=== PATIENT | male | born 1985 | race Caucasian/White ===

== ENCOUNTER 2018-01-07 16:07 | Emergency (ER) | payer BC, OTHER ==
[2018-01-07 16:44] LABS: VBG CARBOXYHEMOGLOBIN 10.8 % T HGB (0.0-6.9); VBG HCO3- 27.6 meq/L (22-28); VBG HEMOGLOBIN 16.3; VBG O2 SATURATION 54.5 (95-100); VBG PCO2 50 mm/Hg (42-55); VBG PO2 26 mm/Hg (25-40); VBG POTASSIUM 3.3 (3.5-5.1); VBG pH 7.35 (7.32-7.42)
[2018-01-07] MEDS ORDERED: Sodium Chloride 0.9% 1000 ML 1,000 ML (16:44)
[2018-01-07] MEDS ORDERED: THIAMINE 200 MG/2 ML (16:44)
[2018-01-07] MEDS: THIAMINE 200 MG/2 ML IV (16:45)
[2018-01-07] MEDS: Sodium Chloride 0.9% 1000 ML 1,000 ML IV (16:45)
[2018-01-07 16:53] LABS: BASOPHIL % 0.5 % (0.0-0.4); Basophil (Absolute #) 0.03 (0-0.4); Eosinophil % 0.8 % (0.00-5.0); Eosinophil (Absolute #) 0.05 (0-0.5); Granulocyte Absolute (ANC) 3.85 (1.4-6.9); Hematocrit 46.2 % (42-50); Hemoglobin 15.5 gm/dl (12.5-18.0); Lymphocyte (Absolute #) 1.58 (1.0-4.6); Lymphocytes % 26.6 % (24.0-44.0); Mean Cell Volume 90.2 fl (78-100); Mean Corpuscular Hemoglobin 30.3 pg (26-32); Mean Corpuscular Hgb Concent. 33.5 g/dl (32-36); Mean Platelet Volume 10.9 fl (6-9.5); Monocyte (Absolute #) 0.42 (0.0-1.3); Monocytes % 7.1 % (0.0-12.0); Platelet Count 189 K/mm3 (150-450); Red Blood Count 5.12 M/mm3 (4.1-5.6); Red Cell Distribution Width 13.2 % (11.5-14.0); White Blood Count 5.9 K/mm3 (4.0-10.5)
[2018-01-07 16:58] LABS: ADD MANUAL DIFF? NO (NO)
[2018-01-07 17:07] LABS: ALBUMIN 4.8 g/dL (3.5-5.0); ALKALINE PHOSPHATASE 78 U/L (38-126); ANION GAP 14.6 MEQ/L (5-15); BLOOD UREA NITROGEN 11 mg/dL (9-20); CHLORIDE 103 mmol/L (98-107); Calcium 9.4 mg/dL (8.4-10.2); Carbon Dioxide 26 mmol/L (22-30); Creatinine 1 0.96 mg/dL (0.66-1.25); EST GLOMERULAR FILTRATION RATE > 60.0 ML/MIN; ETHYL ALCOHOL 124 mg/dL (0-10); Glucose 100 mg/dL (74-106); Potassium 3.6 mmol/L (3.5-5.1); SGOT/AST 24 U/L (17-59); SGPT/ALT 18 U/L (0-50); SODIUM 140 mmol/L (137-145); Total Protein 7.3 g/dL (6.3-8.2)
[2018-01-07 17:10] LABS: ACETAMINOPHEN < 10 ug/ml (10-30); SALICYLATE < 1.0 mg/dL (2-20)
[2018-01-07 18:15] LABS: VBG BASE EXCESS 2.7 (-2.0-2.0); VBG CARBOXYHEMOGLOBIN 6.4 % T HGB (0.0-6.9); VBG HCO3- 28.5 meq/L (22-28); VBG HEMOGLOBIN 15.7; VBG O2 SATURATION 48.7 (95-100); VBG PCO2 47 mm/Hg (42-55); VBG PO2 24 mm/Hg (25-40); VBG pH 7.39 (7.32-7.42)
[2018-01-07 18:18] LABS: Appearance CLEAR (CLEAR); Bilirubin NEGATIVE (NEGATIVE); Blood NEGATIVE Ery/ul (0-5); Glucose NEGATIVE (NEGATIVE); Ketones NEGATIVE (NEGATIVE); Leukocyte Esterase NEGATIVE (NEGATIVE); Mucus SLIGHT /HPF (NEGATIVE); Nitrite NEGATIVE (NEGATIVE); Protein,Urine Dip NEGATIVE (Negative); Specific Gravity 1.024 (1.005-1.025); Urobilinogen 2 mg/dL (0-1); WBC 0-2 /HPF (0-5)
[2018-01-07 18:22] LABS: Bacteria NONE SEEN /HPF (NEGATIVE)
[2018-01-07 18:23] LABS: ADD URINE CULTURE? NO (NO)
[2018-01-07 18:34] LABS: Amphetamine,Urine NEGATIVE (NEGATIVE); Barbiturate,Urine NEGATIVE (NEGATIVE); Benzodiazepine,Urine NEGATIVE (NEGATIVE); Cocaine,Urine NEGATIVE (NEGATIVE); Methadone,Urine NEGATIVE (NEGATIVE); Opiate,Urine NEGATIVE (NEGATIVE); PCP,Urine NEGATIVE (NEGATIVE); THC,Urine NEGATIVE (NEGATIVE)
== END 2018-01-07 19:33 ==
LOC: ED 16:07
CPT/HCPCS: 36000; 36415; 80053; 80307; 81001; 82805; 85025; 93005; 93041; 96360; 96374; G0481

== ENCOUNTER 2019-11-02 15:24 | Emergency (ER) | payer BC, OTHER ==
--- NOTE | 2019-11-02 15:32 | ERPHSYRPT ---
- History of Present Illness Time Seen by Provider: 11/02/19 15:31 Source: patient, EMS Exam Limitations: clinical condition Physician History: This is a 33-year-old white male who has some anxiety issues and was recently placed (within the last 2 weeks) on hydroxyzine and Wellbutrin. Today, while at work, witnesses state that he had a syncopal episode with seizure-like activity. By the time EMS arrived, the patient appeared postictal without any evidence of seizures. Patient only complaint is right clavicle and right shoulder pain. He was tachycardic in route here to the emergency department. He denies any other medication use. He denies illicit drug use. Patient has no history of seizures. Patient did not soil himself with urine or stool. Timing/Duration: today Severity: moderate Character of Deficits: none Deficits: no difficulties Baseline/Normal Cognition: alert oriented x 3 Current Cognition: alert but confused Baseline Gait: walks w/o assistance Associated Symptoms: confusion (Postictal) Allergies/Adverse Reactions: No Known Drug Allergies Allergy (Verified 01/07/18 16:45) Home Medications: buPROPion HCl [Bupropion HCl Sr] 150 mg PO DAILY 11/02/19 [History] hydrOXYzine HCL [Hydroxyzine HCl] 10 mg PO DAILY 11/02/19 [History] Hx Tetanus, Diphtheria Vaccination/Date Given: No Hx Influenza Vaccination/Date Given: No Hx Pneumococcal Vaccination/Date Given: No Travel Risk - International Travel Have you traveled outside of the country in past 3 weeks: No - Coronavirus Screening Are you exhibiting any of the following symptoms?: No Close contact with a COVID-19 positive Pt in past 14-21 Days: No - Review of Systems Constitutional: No Symptoms Eyes: No Symptoms Ears, Nose, & Throat: No Symptoms Respiratory: No Symptoms Cardiac: No Symptoms Abdominal/Gastrointestinal: No Symptoms Genitourinary Symptoms: No Symptoms Musculoskeletal: Injury (Right clavicle and right shoulder) Skin: No Symptoms Neurological: No Symptoms Psychological: No Symptoms Endocrine: No Symptoms Hematologic/Lymphatic: No Symptoms Immunological/Allergic: No Symptoms All Other Systems: Reviewed and Negative - Past Medical History Pertinent Past Medical History: Yes Neurological History: No Pertinent History ENT History: No Pertinent History Cardiac History: No Pertinent History Respiratory History: No Pertinent History Musculoskeletal History: No Pertinent History GI Medical History: No Pertinent History History: No Pertinent History Psycho-Social History: Anxiety, Depression - Past Surgical History Past Surgical History: No Neuro Surgical History: No Pertinent History Cardiac: No Pertinent History Respiratory: No Pertinent History Gastrointestinal: No Pertinent History Genitourinary: No Pertinent History Musculoskeletal: No Pertinent History Male Surgical History: No Pertinent History - Social History Smoking Status: Current every day smoker How long have you smoked: 12 years Exposure to second hand smoke: Yes Drug Use: none Patient Lives Alone: No - Nursing Vital Signs Nursing Vital Signs: Initial Vital Signs Temperature 98.6 F 11/02/19 15:26 Pulse Rate 120 H 11/02/19 15:26 Respiratory Rate 22 11/02/19 15:26 Blood Pressure 142/95 11/02/19 15:26 O2 Sat by Pulse Oximetry 100 11/02/19 15:26 Pain Scale Pain Intensity 4 - [place] Coma Scale Best Eye Response ([place]): (4) open spontaneously Best Verbal Response ([place]): (5) oriented Best Motor Response (Sujatha): (6) obeys commands Sujatha Total: 15 - Physical Exam General Appearance: mild distress, alert, anxiety Eye Exam: bilateral eye: normal inspection, PERRL, EOMI Ears, Nose, Throat Exam: normal ENT inspection, moist mucous membranes Neck Exam: normal inspection, non-tender, supple, full range of motion Respiratory: normal breath sounds, lungs clear, airway intact, No chest tenderness, No respiratory distress Cardiovascular: tachycardia Gastrointestinal: soft, normal bowel sounds, No tenderness Rectal Exam: not done Back Exam: normal inspection, normal range of motion, No CVA tenderness, No vertebral tenderness Extremity Exam: pelvis stable, deformities (Right mid clavicle), limited range of motion (Right shoulder), tenderness (Right clavicle) Mental Status: alert, 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 There is new sinus tachycardia. Neither EKG shows acute ischemic changes), Sinus Tach, NORMAL AXIS, NORMAL INTERVALS, NORMAL QRS, Other Ordered Tests: Active Orders 24 hr Category Date Time Status Aircraft Structural Design Engineer STAT Care 11/02/19 15:35 Active Clean Catch Urine Specimen STAT Care 11/02/19 15:33 Active EKG-ER Only STAT Care 11/02/19 15:33 Active Sling Application STAT Care 11/02/19 16:26 Active CLAVICLE Stat Exams 11/02/19 15:39 Taken HEAD WITHOUT CONTRAST [CT] Stat Exams 11/02/19 15:33 Taken SHOULDER Stat Exams 11/02/19 15:39 Taken ACETAMINOPHEN Stat Lab 11/02/19 15:46 Completed CBC W DIFF Stat Lab 11/02/19 15:46 Completed CMP Stat Lab 11/02/19 15:46 Completed ETHYL ALCOHOL Stat Lab 11/02/19 15:46 Completed SALICYLATE Stat Lab 11/02/19 15:46 Completed TROPONIN Q3H Lab 11/02/19 15:45 Completed TROPONIN Q3H Lab 11/02/19 18:45 Ordered TROPONIN Q3H Lab 11/02/19 21:45 Ordered TROPONIN Q3H Lab 11/03/19 00:45 Ordered TROPONIN Q3H Lab 11/03/19 03:45 Ordered UA W/RFX UR CULTURE Stat Lab 11/02/19 17:45 Completed Urine Triage Profile Stat Lab 11/02/19 17:45 Completed Medication Summary Discontinued Medications Generic Name Dose Route Start Last Admin Trade Name Freq PRN Reason Stop Dose Admin Lorazepam 1 mg 11/02/19 15:40 11/02/19 15:44 Ativan 2 Mg/1 Ml Vial IV 11/02/19 15:41 1 mg STAT ONE Administration Lorazepam Confirm 11/02/19 15:44 Ativan 2 Mg/1 Ml Vial Administered 11/02/19 15:45 Dose 2 mg .ROUTE .STK-MED ONE Lab/Rad Data: Laboratory Result Diagrams 11/02/19 15:46 11/02/19 15:46 Laboratory Results 11/02/19 11/02/19 11/02/19 Range/Units 17:45 17:45 15:46 WBC (4.0-10.5) K/mm3 RBC (4.1-5.6) M/mm3 Hgb (12.5-18.0) gm/dl Hct (42-50) % MCV (78-100) fl MCH (26-32) pg MCHC (32-36) g/dl RDW (11.5-14.0) % Plt Count (150-450) K/mm3 MPV (7.5-11.0) fl Gran % (36.0-66.0) % Eos # (Auto) (0-0.5) Absolute Lymphs (auto) (1.0-4.6) Absolute Monos (auto) (0.0-1.3) Lymphocytes % (24.0-44.0) % Monocytes % (0.0-12.0) % Eosinophils % (0.00-5.0) % Basophils % (0.0-0.4) % Absolute Granulocytes (1.4-6.9) Basophils # (0-0.4) Sodium 136 L (137-145) mmol/L Potassium 4.1 (3.5-5.1) mmol/L Chloride 107 (98-107) mmol/L Carbon Dioxide 16 L* (22-30) mmol/L Anion Gap 16.9 H (5-15) MEQ/L BUN 12 (9-20) mg/dL Creatinine 1.00 (0.66-1.25) mg/dL Estimated GFR > 60.0 ML/MIN Glucose 95 (74-106) mg/dL Calcium 8.8 (8.4-10.2) mg/dL Total Bilirubin 0.40 (0.2-1.3) mg/dL AST 31 (17-59) U/L ALT 25 (0-50) U/L Alkaline Phosphatase 65 (38-126) U/L Troponin I (0.000-0.034) ng/mL Serum Total Protein 6.4 (6.3-8.2) g/dL Albumin 4.1 (3.5-5.0) g/dL Urine Color YELLOW (YELLOW) Urine Appearance SLIGHTLY CLOUDY (CLEAR) Urine pH 6.0 (5-6) Ur Specific [place] 1.006 (1.005-1.025) Urine Protein NEGATIVE (Negative) Urine Ketones NEGATIVE (NEGATIVE) Urine Blood NEGATIVE (0-5) [place]/ul Urine Nitrite NEGATIVE (NEGATIVE) Urine Bilirubin NEGATIVE (NEGATIVE) Urine Urobilinogen NEGATIVE (0-1) mg/dL Ur Leukocyte Esterase NEGATIVE (NEGATIVE) Urine WBC (Auto) NONE (0-5) /HPF Urine RBC (Auto) NONE (0-2) /HPF U Epithel Cells (Auto) NONE (FEW) /HPF Urine Bacteria (Auto) NONE (NEGATIVE) /HPF Urine Mucus (Auto) SLIGHT (NEGATIVE) /HPF Urine Culture Reflexed NO (NO) Urine Glucose NEGATIVE (NEGATIVE) mg/dL Salicylates 1.0 L (2-20) mg/dL Urine Opiates Level NEGATIVE (NEGATIVE) Ur Methadone NEGATIVE (NEGATIVE) Acetaminophen < 10 L (10-30) ug/ml Urine Barbiturates NEGATIVE (NEGATIVE) Ur Phencyclidine (PCP) NEGATIVE (NEGATIVE) Urine Amphetamine NEGATIVE (NEGATIVE) U Benzodiazepine Level NEGATIVE (NEGATIVE) Urine Cocaine NEGATIVE (NEGATIVE) Urine Marijuana (THC) NEGATIVE (NEGATIVE) Ethyl Alcohol < 10 (0-10) mg/dL 11/02/19 11/02/19 Range/Units 15:46 15:45 WBC 5.2 (4.0-10.5) K/mm3 RBC 4.63 (4.1-5.6) M/mm3 Hgb 14.3 (12.5-18.0) gm/dl Hct 42.9 (42-50) % MCV 92.7 (78-100) fl MCH 30.9 (26-32) pg MCHC 33.3 (32-36) g/dl RDW 13.0 (11.5-14.0) % Plt Count 188 (150-450) K/mm3 MPV 10.2 (7.5-11.0) fl Gran % 60.1 (36.0-66.0) % Eos # (Auto) 0.08 (0-0.5) Absolute Lymphs (auto) 1.59 (1.0-4.6) Absolute Monos (auto) 0.38 (0.0-1.3) Lymphocytes % 30.5 (24.0-44.0) % Monocytes % 7.3 (0.0-12.0) % Eosinophils % 1.5 (0.00-5.0) % Basophils % 0.6 (0.0-0.4) % Absolute Granulocytes 3.14 (1.4-6.9) Basophils # 0.03 (0-0.4) Sodium (137-145) mmol/L Potassium (3.5-5.1) mmol/L Chloride (98-107) mmol/L Carbon Dioxide (22-30) mmol/L Anion Gap (5-15) MEQ/L BUN (9-20) mg/dL Creatinine (0.66-1.25) mg/dL Estimated GFR ML/MIN Glucose (74-106) mg/dL Calcium (8.4-10.2) mg/dL Total Bilirubin (0.2-1.3) mg/dL AST (17-59) U/L ALT (0-50) U/L Alkaline Phosphatase (38-126) U/L Troponin I < 0.012 (0.000-0.034) ng/mL Serum Total Protein (6.3-8.2) g/dL Albumin (3.5-5.0) g/dL Urine Color (YELLOW) Urine Appearance (CLEAR) Urine pH (5-6) Ur Specific [place] (1.005-1.025) Urine Protein (Negative) Urine Ketones (NEGATIVE) Urine Blood (0-5) [place]/ul Urine Nitrite (NEGATIVE) Urine Bilirubin (NEGATIVE) Urine Urobilinogen (0-1) mg/dL Ur Leukocyte Esterase (NEGATIVE) Urine WBC (Auto) (0-5) /HPF Urine RBC (Auto) (0-2) /HPF U Epithel Cells (Auto) (FEW) /HPF Urine Bacteria (Auto) (NEGATIVE) /HPF Urine Mucus (Auto) (NEGATIVE) /HPF Urine Culture Reflexed (NO) Urine Glucose (NEGATIVE) mg/dL Salicylates (2-20) mg/dL Urine Opiates Level (NEGATIVE) Ur Methadone (NEGATIVE) Acetaminophen (10-30) ug/ml Urine Barbiturates (NEGATIVE) Ur Phencyclidine (PCP) (NEGATIVE) Urine Amphetamine (NEGATIVE) U Benzodiazepine Level (NEGATIVE) Urine Cocaine (NEGATIVE) Urine Marijuana (THC) (NEGATIVE) Ethyl Alcohol (0-10) mg/dL - Progress Progress: improved, pain not gone completely, re-examined Progress Note: 11/02/19 16:22 X-ray of right clavicle reveals fracture at the distal one third. X-ray of the right shoulder reveals no shoulder fracture or dislocation. The fracture of the right clavicle is visible. 11/02/19 16:49 Spoke with trauma surgeon, Dr. Jay, [facility]. I reviewed the x-ray of the right clavicle with her. She states that 50% of these types of clavicular fractures are treated nonoperatively and 50% are treated operatively. She states that they can be dealt with on an outpatient basis. She recommends contacting orthopedic surgeon Dr. Dougherty on Tuesday to make arrangements for an appointment for evaluation. She recommends patient be placed in a sling. The patient had already been paid placed in a sling and his pain is significantly improved in the sling. 11/02/19 17:31 CAT scan of the head reveals no acute intracranial abnormality. Medical decision making: This patient has no acute intracranial abnormality on his CAT scan of his head. He states he is feeling well at this time. We will have him decrease his Wellbutrin to the beginning dose rather than stop his medication completely over the weekend. We will have him stop his hydroxyzine and add Ativan twice a day over the weekend. We will keep him in a sling to help stabilize and for pain control for his right clavicular fracture. He is to call orthopedic surgeon on Tuesday for evaluation of his right clavicular f racture as well as calling Ivon Rice nurse practitioner for further management of his medications. 11/02/19 18:27 Patient is feeling very well. I think his CO2 is low secondary to hyperventilating when he first came in. He now says that he no longer feels as though he is in a fog. He has no chest pain he is not short of breath. Counseled pt/family regarding: lab results, diagnosis, need for follow-up, rad results - Departure Departure Disposition: Home Clinical Impression: Episode of syncope, Right clavicle fracture Condition: Stable Critical Care Time: No Referrals: THUY GALVAN MD [Primary Care Provider] - Additional Instructions: Wear your sling for comfort. Stop your hydroxyzine. Decrease your Wellbutrin to the lowest beginning dose that she started 2 weeks ago. Do not take the lorazepam (Ativan) and the [place] pain medicine at the same time. Wait 2 hours between taking Ativan and [place]. Only use these medication on an as-needed basis. Call Ivon Rice your nurse practitioner on Tuesday for further instructions and management of your medications. Call Dr. Dougherty, orthopedic surgeon on 11/05/2019 to arrange for follow-up appointment and further management of your right clavicle fracture. His office is in [facility]. His office phone number is [phone] Prescriptions: Lorazepam 0.5 mg [Ativan 0.5 MG] 0.5 mg PO BID PRN #6 tablet MDD 2 PRN Reason: Anxiety Hydrocodone/APAP 5-325 Tab^^^ [[place] 5-325 Tablet^^^] 1 each PO Q12H PRN #6 tablet MDD 2 PRN Reason: Moderate Pain
[2019-11-02] MEDS ORDERED: Ativan 2 MG/1 ML VIAL IV ONE (15:40)
[2019-11-02] MEDS ORDERED: Ativan 2 MG/1 ML VIAL ONE (15:44)
[2019-11-02 15:59] LABS: Absolute Neutrophil Ct (ANC) 3.14 (1.4-6.9); BASOPHIL % 0.6 % (0.0-0.4); Basophil (Absolute #) 0.03 (0-0.4); Eosinophil % 1.5 % (0.00-5.0); Eosinophil (Absolute #) 0.08 (0-0.5); Hematocrit 42.9 % (42-50); Hemoglobin 14.3 gm/dl (12.5-18.0); Lymphocyte (Absolute #) 1.59 (1.0-4.6); Lymphocytes % 30.5 % (24.0-44.0); Mean Cell Volume 92.7 fl (78-100); Mean Corpuscular Hemoglobin 30.9 pg (26-32); Mean Corpuscular Hgb Concent. 33.3 g/dl (32-36); Mean Platelet Volume 10.2 fl (7.5-11.0); Monocyte (Absolute #) 0.38 (0.0-1.3); Monocytes % 7.3 % (0.0-12.0); Neutrophil % 60.1 % (36.0-66.0); Platelet Count 188 K/mm3 (150-450); Red Blood Count 4.63 M/mm3 (4.1-5.6); White Blood Count 5.2 K/mm3 (4.0-10.5)
[2019-11-02 16:19] LABS: ALBUMIN 4.1 g/dL (3.5-5.0); ALKALINE PHOSPHATASE 65 U/L (38-126); ANION GAP 16.9 MEQ/L (5-15); BLOOD UREA NITROGEN 12 mg/dL (9-20); CHLORIDE 107 mmol/L (98-107); Calcium 8.8 mg/dL (8.4-10.2); EST GLOMERULAR FILTRATION RATE > 60.0 ML/MIN; Glucose 95 mg/dL (74-106); Potassium 4.1 mmol/L (3.5-5.1); SGOT/AST 31 U/L (17-59); SGPT/ALT 25 U/L (0-50); SODIUM 136 mmol/L (137-145); Total Protein 6.4 g/dL (6.3-8.2)
[2019-11-02 16:20] LABS: ACETAMINOPHEN < 10 ug/ml (10-30); Carbon Dioxide 16 mmol/L (22-30); ETHYL ALCOHOL < 10 mg/dL (0-10)
[2019-11-02 17:59] LABS: Appearance SLIGHTLY CLOUDY (CLEAR); Bilirubin NEGATIVE (NEGATIVE); Blood NEGATIVE Ery/ul (0-5); Glucose NEGATIVE (NEGATIVE); Ketones NEGATIVE (NEGATIVE); Leukocyte Esterase NEGATIVE (NEGATIVE); Mucus SLIGHT /HPF (NEGATIVE); Nitrite NEGATIVE (NEGATIVE); Protein,Urine Dip NEGATIVE (Negative); Specific Gravity 1.006 (1.005-1.025); Urobilinogen NEGATIVE mg/dL (0-1)
[2019-11-02 18:13] LABS: Amphetamine,Urine NEGATIVE (NEGATIVE); Barbiturate,Urine NEGATIVE (NEGATIVE); Benzodiazepine,Urine NEGATIVE (NEGATIVE); Cocaine,Urine NEGATIVE (NEGATIVE); Methadone,Urine NEGATIVE (NEGATIVE); Opiate,Urine NEGATIVE (NEGATIVE); PCP,Urine NEGATIVE (NEGATIVE); THC,Urine NEGATIVE (NEGATIVE)
[2019-11-02 18:32] VITALS: BP 136/75; PULSE 94; O2SAT 99
--- NOTE | 2019-11-02 21:59 | XRAY ---
Indication: Syncope. New onset seizure. Multiple contiguous axial images obtained through the head without contrast. Comparison: None Normal appearing brain parenchyma, ventricles, and bony calvarium. Impression: Normal CT head without contrast exam.
--- NOTE | 2019-11-02 22:06 | XRAY ---
Indication: Pain following syncope/seizure. 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 No other bony, articular, or soft tissue abnormalities.
--- NOTE | 2019-11-02 22:06 | XRAY ---
Indication: Pain following syncope/seizure. Comparison: None 2 view right clavicle demonstrates old nonunited mid shaft fracture with bayonet apposition/alignment. No other bony, articular, or soft tissue abnormalities.
== END 2019-11-02 18:46 | disposition home or self-care (01) ==
LOC: ED 15:24
DX: R55 Syncope and collapse (principal); S42.021A Displaced fracture of shaft of right clavicle, initial encounter for closed fracture; R41.0 Disorientation, unspecified; Z79.899 Other long term (current) drug therapy; F41.9 Anxiety disorder, unspecified
CPT/HCPCS: 36415; 70450; 73000; 73030; 80053; 80307; 81001; 84484; 85025; 93005; 93041; 96374; 99284; J2060; G0480

== ENCOUNTER 2022-07-11 13:28 | Emergency (ER) | payer OTHER ==
[2022-07-11] MEDS ORDERED: TETRACAINE 0.5% STERI-UNIT SOL OP ONE (15:08)
[2022-07-11] MEDS ORDERED: Fluor-I-Strip/Ful-Flo OP ONE (15:08)
[2022-07-11] MEDS ORDERED: Eye-Stream Solution ONE (15:08)
[2022-07-11] MEDS ORDERED: Ocuflox OPHTHALMIC 5 ML OP ONE (15:09)
--- NOTE | 2022-07-11 15:39 | ERPHSYRPT ---
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 A week ago it started becoming red and irritated and has continued to worsen. Today left eye is very painful and red. Triage Nursing Assessment: Pt alert and oriented x3. No apparent respiratory distress. Ambulated to ED without difficulty. Left eye red/irritated and pt is keeping closed. 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 Patient continue to use contact lenses afterwards until couple of days ago when it got really worse with burning, watering and blurry vision. Moderate intensity sharp pain, more with light and movements of eyeball. No discharge otherwise. Timing/Duration: week(s) (1), sudden, worse Location: left eye Severity: moderate Apparent Injury: possibly Associated Symptoms: sensitivity to light, redness, eyelid swelling, blurred vision Visual Assistive Devices: Contacts Chemical Exposure: No Welding Arc/Tanning Bed Exposure: No Allergies/Adverse Reactions: bupropion [From Wellbutrin] Adverse Reaction (Verified 07/11/22 13:40) seizures Home Medications: No Reportable Medications [No Reported Medications] 07/11/22 [History] Hx Tetanus, Diphtheria Vaccination/Date Given: Yes Hx Influenza Vaccination/Date Given: No Hx Pneumococcal Vaccination/Date Given: No Travel Risk - International Travel Have you traveled outside of the country in past 3 weeks: No - Coronavirus Screening Are you exhibiting any of the following symptoms?: No Close contact with a COVID-19 positive Pt in past 14-21 Days: No - Vaccine Status Have you recieved a Covid-19 vaccination: No - Review of Systems Constitutional: No Symptoms Eyes: Eye Pain, Eye Redness, Photophobia, Vision Changes, Foreign Body Sensation Ears, Nose, & Throat: No Symptoms Respiratory: No Symptoms Cardiac: No Symptoms Neurological: No Symptoms Endocrine: No Symptoms - Past Medical History Pertinent Past Medical History: Yes Neurological History: No Pertinent History ENT History: No Pertinent History Cardiac History: No Pertinent History Respiratory History: No Pertinent History Musculoskeletal History: No Pertinent History GI Medical History: No Pertinent History History: No Pertinent History Psycho-Social History: Anxiety, Depression - Past Surgical History Past Surgical History: No Neuro Surgical History: No Pertinent History Cardiac: No Pertinent History Respiratory: No Pertinent History Gastrointestinal: No Pertinent History Genitourinary: No Pertinent History Musculoskeletal: No Pertinent History Male Surgical History: No Pertinent History - Social History Smoking Status: Former smoker How long have you smoked: 12 years Exposure to second hand smoke: Yes Drug Use: none Patient Lives Alone: No - Nursing Vital Signs Nursing Vital Signs: Initial Vital Signs O2 Sat by Pulse Oximetry 96 07/11/22 15:41 Pain Scale Pain Intensity 8 - Physical Exam General Appearance: no apparent distress Vision Acuity Degree Evaluation Phase: Uncorrected Vision Acuity Right Eye: 20/70 Vision Acuity Left Eye: 20/200 Eye Exam: left eye: conjunctival inflammation, corneal abrasion, bilateral eye: PERRL, EOMI Ears, Nose, Throat Exam: normal ENT inspection, pharynx normal Neck Exam: normal inspection, supple, full range of motion Respiratory Exam: normal breath sounds, lungs clear Cardiovascular Exam: regular rate/rhythm, normal heart sounds Neurologic: alert, oriented x 3, cooperative, broom worker II-XII nml as tested Skin Exam: normal color SpO2 Interpretation: normal SpO2: 96 O2 Delivery: Room Air Procedures - Eye Procedure Time of Procedure: 15:07 Timeout: Performed Tetracaine Drops Administered: Yes Eye FB Removal: other Remaining Material after FB Removal: none Antibiotic Oinment/Drps Admin: left eye Progress: Eye is stained with fluorescein with uptake in the lower half of cornea, partial involvement of pupils. Tolerated procedure very well. Ordered Tests: Medication Summary Discontinued Medications Generic Name Dose Route Start Last Admin Trade Name Yesenia PRN Reason Stop Dose Admin Eye Irrigation Solution Confirm 07/11/22 15:08 Sodium/Potassium/David/Magnesium 30 Ml Eye Wash Administered 07/11/22 15:09 Dose 30 ml .ROUTE .STK-MED ONE Fluorescein Sodium Confirm 07/11/22 15:08 Fluorescein Sodium 1 Mg/Strip Strip Administered 07/11/22 15:09 Dose 1 mg OP .STK-MED ONE Ofloxacin Confirm 07/11/22 15:09 Ofloxacin 0.3% Opth 5 Ml Eye Drops Administered 07/11/22 15:10 Dose 5 ml OP .STK-MED ONE Tetracaine HCl Confirm 07/11/22 15:08 Tetracaine Hcl/Pf 4 Ml Bottle Administered 07/11/22 15:09 Dose 4 ml OP .STK-MED ONE - Progress Progress: improved Progress Note: 07/11/22 15:38 36-year-old male having poor vision despite using contact lenses presented in the ER after he got something into his left eye 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 Patient continue to use contact lenses afterwards until couple of days ago when it got really worse with burning, watering and blurry vision. Moderate intensity sharp pain, more with light and movements of eyeball. No discharge otherwise. I offered pain medication and he declined. Tetracaine drops placed and fluorescein Wood's lamp exam showed positive uptake in the lower half of cornea with minimal involvement on the lower edge of pupil. No obvious foreign body noticed, have abrasions. Patient is advised not to use contact lens until has seen media monitor/recruitment specialist and go with his recommendations. He is started on ofloxacin eyedrops. Patient is up-to-date with tetanus. Discussed signs symptoms of worsening needing return to ER which he seems understanding. 07/11/22 15:40 Counseled pt/family regarding: diagnosis, need for follow-up Medical Desision Making - Independent Historian Additional History obtained from: Spouse - Risk of complications The pt has a mod risk of morbidity or mortality based on: Need for prescription drug management, Need for minor surgical intervention in patient with know risk factors - Departure Departure Disposition: Home Clinical Impression: Corneal abrasion Condition: Stable Critical Care Time: No Referrals: JEREL ROBLERO NP [Primary Care Provider] - Follow up/PCP as directed Instructions: Foreign Body in Eye (DC) Additional Instructions: Take Tylenol/ibuprofen as needed for pain. Use ofloxacin eyedrops given to you as recommended 2 drops every 2 hour for 2 days while awake and then 2 drops every 6 hours for next 5 days Follow-up with your eye doctor tomorrow morning for further evaluation Do not use contact lenses at all until cleared by eye doctor. Return to ER for excruciating pain, worsening vision, swelling of legs etc.
[2022-07-11 15:50] VITALS: BP 135/71; PULSE 80; O2SAT 99
== END 2022-07-11 15:50 | disposition home or self-care (01) ==
LOC: ED 13:28
DX: S05.02XA Injury of conjunctiva and corneal abrasion without foreign body, left eye, initial encounter (principal); H57.12 Ocular pain, left eye; Z28.310 Unvaccinated for COVID-19
CPT/HCPCS: 99281; A9270-GY

== ENCOUNTER 2022-10-25 11:18 | Emergency (ER) | payer OTHER ==
[2022-10-25] MEDS ORDERED: DECADRON 10MG INJ. IV ONE (11:28)
[2022-10-25 11:31] VITALS: TEMP 98; O2SAT 100
[2022-10-25] MEDS ORDERED: DECADRON 10MG INJ. ONE (11:31)
--- NOTE | 2022-10-25 11:47 | ERPHSYRPT ---
- History of Present Illness Source: patient, other () Exam Limitations: no limitations Patient Subjective Stated Complaint: C/O throat swelling that started this am. Patient denies pain, states his throat feels "scratch." Triage Nursing Assessment: Patient ambulated back to ER without difficulties. He is alert and oriented. No SOB. Patient clearing throat during assessment. Throat examined; uvula is red and swollen. No sores noted inside mouth or throat at this time. Physician History: 36 yo WM w uvula edema when he woke up this morning. He has had mild N/V/dysphagia but denies fever/cough/coryza/chest pain/dyspnea. Timing/Duration: abrupt onset Severity: mild ENT Location: throat Prearrival Treatment: no prearrival treatment Modifying Factors: Improves With: nothing Associated Symptoms: denies symptoms Allergies/Adverse Reactions: bupropion [From Wellbutrin] Adverse Reaction (Verified 10/25/22 11:19) seizures Hx Tetanus, Diphtheria Vaccination/Date Given: Yes Hx Influenza Vaccination/Date Given: No Hx Pneumococcal Vaccination/Date Given: No Immunizations Up to Date: Yes Travel Risk - International Travel Have you traveled outside of the country in past 3 weeks: No - Coronavirus Screening Are you exhibiting any of the following symptoms?: No Close contact with a COVID-19 positive Pt in past 14-21 Days: No - Vaccine Status Have you recieved a Covid-19 vaccination: No - Review of Systems Constitutional: No Symptoms Eyes: No Symptoms Respiratory: No Symptoms Cardiac: No Symptoms Abdominal/Gastrointestinal: No Symptoms Genitourinary Symptoms: No Symptoms Musculoskeletal: No Symptoms Skin: No Symptoms Neurological: No Symptoms Psychological: No Symptoms Endocrine: No Symptoms Hematologic/Lymphatic: No Symptoms Immunological/Allergic: No Symptoms - Past Medical History Pertinent Past Medical History: Yes Neurological History: No Pertinent History ENT History: No Pertinent History Cardiac History: No Pertinent History Respiratory History: No Pertinent History Musculoskeletal History: Fractures GI Medical History: No Pertinent History History: No Pertinent History Psycho-Social History: Anxiety, Depression - Past Surgical History Past Surgical History: Yes Neuro Surgical History: No Pertinent History Cardiac: No Pertinent History Respiratory: No Pertinent History Gastrointestinal: No Pertinent History Genitourinary: No Pertinent History Musculoskeletal: No Pertinent History Male Surgical History: No Pertinent History Other Surgical History: COLLAR BONE REPAIR - Social History Smoking Status: Never smoker How long have you smoked: 12 years Exposure to second hand smoke: No Drug Use: none Patient Lives Alone: No - Nursing Vital Signs Nursing Vital Signs: Initial Vital Signs Temperature 98 F 10/25/22 11:18 Pulse Rate 81 10/25/22 11:18 Respiratory Rate 19 10/25/22 11:18 Blood Pressure 136/85 10/25/22 11:18 O2 Sat by Pulse Oximetry 100 10/25/22 11:18 Pain Scale Pain Intensity 0 WNL - Physical Exam General Appearance: no apparent distress Eye Exam: bilateral eye: normal inspection, PERRL, EOMI Ear Exam: bilateral ear: auricle normal, canal normal, TM normal Nasal Exam: normal inspection Throat Exam: moist mucus membranes (Uvula edematous/Good airway/No peritonsillar abscess/No erythema) Neck Exam: normal inspection, non-tender, supple, trachea midline Cardiovascular/Respiratory Exam: normal breath sounds, regular rate/rhythm, heart sounds normal Abdominal Exam: non-tender, soft Neurologic Exam: alert, oriented x 3, cooperative, 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 nml as tested, normal mood/affect, nml cerebellar function, nml station & gait, sensation nml Skin Exam: normal color, warm, dry, No rash SpO2 Interpretation: normal SpO2: 100 O2 Delivery: Room Air Ordered Tests: Active Orders 24 hr Category Date Time Status MONO SCREEN Stat Lab 10/25/22 11:29 Completed Medication Summary Discontinued Medications Generic Name Dose Route Start Last Admin Trade Name Yesenia PRN Reason Stop Dose Admin Dexamethasone Sodium Phosphate 10 mg 10/25/22 11:28 10/25/22 11:33 Dexamethasone Sod Phosphate 10 Mg/Ml IV 10/25/22 11:29 10 mg STAT ONE Administration Dexamethasone Sodium Phosphate Confirm 10/25/22 11:31 Dexamethasone Sod Phosphate 10 Mg/Ml Administered 10/25/22 11:32 Dose 10 mg .ROUTE .STK-MED ONE Diphenhydramine HCl 25 mg 10/25/22 12:41 10/25/22 12:50 Diphenhydramine Hcl 50 Mg/Ml Vial IV 10/25/22 12:42 25 mg STAT ONE Administration Diphenhydramine HCl Confirm 10/25/22 12:48 Diphenhydramine Hcl 50 Mg/Ml Vial Administered 10/25/22 12:49 Dose 50 mg .ROUTE .STK-MED ONE Epinephrine HCl 0.3 mg 10/25/22 12:41 10/25/22 12:50 Epinephrine 1 Mg/1 Ml Pf Amp 1 Mg/Ml Ml SQ 10/25/22 12:42 0.3 mg STAT ONE Administration Epinephrine HCl Confirm 10/25/22 12:48 Epinephrine 1 Mg/1 Ml Pf Amp 1 Mg/Ml Ml Administered 10/25/22 12:49 Dose 1 mg .ROUTE .STK-MED ONE Famotidine 40 mg 10/25/22 22:00 10/25/22 12:50 Famotidine 20 Mg/1 Vial IV 11/24/22 21:59 40 mg HS DARRYN Administration Famotidine Confirm 10/25/22 12:48 Famotidine 20 Mg/1 Vial Administered 10/25/22 12:49 Dose 40 mg IV .STK-MED ONE Lab/Rad Data: Laboratory Results 10/25/22 10/25/22 Range/Units 11:57 11:29 Monoscreen NEGATIVE (NEGATIVE) Group A Strep Antibody NOT DETECTED (NEGATIVE) - Progress Progress Note: 10/25/22 16:39 Nursing note and vital signs reviewed No food or housing insecurities noted 10mg IV Decadron w minimal improvement in edema 0.3 sq Epi/40mg IV Pepcid/25mg IV Benadryl w improvement in uvula angioedema Etiology of angioedema unknown, but pt improving wo any evidence of airway obstruction during stay and upon discharge Counseled pt/family regarding: diagnosis, need for follow-up Medical Desision Making - Risk of complications The pt has a mod risk of morbidity or mortality based on: Need for prescription drug management - Departure Departure Disposition: Home Clinical Impression: Uvular edema Condition: Stable Critical Care Time: No Referrals: JEREL ROBLERO NP [Primary Care Provider] - Follow up/PCP as directed Instructions: Angioedema (DC) Additional Instructions: Prednisone twice a day for 3 days Benadryl 25mg every 6 hours as needed Return to ER for worsening of condition Prescriptions: Prednisone 10 mg [Deltasone 10 mg] 10 mg PO BID 3 Days #6 tablet
[2022-10-25 12:00] VITALS: RESP 16
[2022-10-25] MEDS ORDERED: Epinephrine Preservative Free 1 MG/ML SQ ONE (12:41)
[2022-10-25] MEDS ORDERED: BENADRYL 50 MG/ML IV ONE (12:41)
[2022-10-25] MEDS ORDERED: Epinephrine Preservative Free 1 MG/ML ONE (12:48)
[2022-10-25] MEDS ORDERED: BENADRYL 50 MG/ML ONE (12:48)
[2022-10-25] MEDS ORDERED: Pepcid 20 MG VIAL IV ONE (12:48)
[2022-10-25 13:35] VITALS: BP 132/80; PULSE 72
[2022-10-25] MEDS ORDERED: Pepcid 20 MG VIAL IV SCH (22:00)
== END 2022-10-25 13:35 | disposition home or self-care (01) ==
LOC: ED 11:18
DX: T78.3XXA Angioneurotic edema, initial encounter (principal); R11.2 Nausea with vomiting, unspecified; R13.10 Dysphagia, unspecified; Z79.52 Long term (current) use of systemic steroids; Z28.310 Unvaccinated for COVID-19
CPT/HCPCS: 36415; 86308; 87651; 96372; 96374; 99283; J0171; J1100; J1200

== ENCOUNTER 2023-07-18 14:52 | Emergency (ER) | payer OTHER ==
[2023-07-18 15:13] VITALS: BP 125/84; PULSE 92; RESP 18; TEMP 98.7; O2SAT 98
[2023-07-18] MEDS: XYLOCAINE 1% HCL 20 ML MDV IJ ONE (15:15)
--- NOTE | 2023-07-18 16:00 | ERPHSYRPT ---
- History of Present Illness Time Seen by Provider: 07/18/23 14:55 Source: patient Exam Limitations: no limitations Patient Subjective Stated Complaint: laceration Triage Nursing Assessment: Patient ambulated back to ED and transferred self to bed. Patient A+O X3. Patient's skin pink, warm and dry. Patient states he was working on his truck when the keshia wrech punctured his left hand in between 4th and 5th digit. Patient denies pain or discomfort. Laceration noted to be 1 cm X 1cm in between 4th and 5th digit to left hand. Physician History: 37-year-old man right-handed dominant up-to-date with tetanus presented in the ER with laceration left hand fourth webspace accidentally while working at home prior to arrival. Patient reports mild dull aching pain. No difficulty movements of the fingers. No injury anywhere else. Allergies/Adverse Reactions: bupropion [From Wellbutrin] Adverse Reaction (Verified 07/18/23 15:06) seizures Home Medications: No Reportable Medications [No Reported Medications] 07/18/23 [History] Hx Tetanus, Diphtheria Vaccination/Date Given: Yes Hx Influenza Vaccination/Date Given: No Hx Pneumococcal Vaccination/Date Given: No Immunizations Up to Date: Yes Travel Risk - International Travel Have you traveled outside of the country in past 3 weeks: No - Emerging Infectious Disease Are you exhibiting symptoms associated with any current EIDs: No - Review of Systems Constitutional: No Symptoms Ears, Nose, & Throat: No Symptoms Respiratory: No Symptoms Cardiac: No Symptoms Musculoskeletal: Injury Skin: Skin Lesions Neurological: No Symptoms - Past Medical History Pertinent Past Medical History: Yes Neurological History: No Pertinent History ENT History: No Pertinent History Cardiac History: No Pertinent History Respiratory History: No Pertinent History Musculoskeletal History: Fractures GI Medical History: No Pertinent History History: No Pertinent History Psycho-Social History: Anxiety, Depression - Past Surgical History Past Surgical History: Yes Neuro Surgical History: No Pertinent History Cardiac: No Pertinent History Respiratory: No Pertinent History Gastrointestinal: No Pertinent History Genitourinary: No Pertinent History Musculoskeletal: No Pertinent History Male Surgical History: No Pertinent History Other Surgical History: COLLAR BONE REPAIR - Social History Smoking Status: Never smoker How long have you smoked: 12 years Exposure to second hand smoke: No Drug Use: none Patient Lives Alone: No - Nursing Vital Signs Nursing Vital Signs: Initial Vital Signs Temperature 98.7 F 07/18/23 15:07 Pulse Rate 92 H 07/18/23 15:07 Respiratory Rate 18 07/18/23 15:07 Blood Pressure 125/84 07/18/23 15:07 O2 Sat by Pulse Oximetry 98 07/18/23 15:07 Pain Scale Pain Intensity 0 - Physical Exam General Appearance: no apparent distress, alert Eye Exam: PERRL/EOMI Neck Exam: normal inspection, full range of motion Respiratory Exam: normal breath sounds, lungs clear Cardiovascular Exam: regular rate/rhythm, normal heart sounds Back Exam: normal range of motion Extremity Exam: other (1.25 cm jagged edges irregular shaped laceration left hand fourth webspace. No active spurting, minimal oozing. No difficulty movements at the metacarpophalangeal or interphalangeal joints.) Neurologic Exam: alert, oriented x 3, cooperative Skin Exam: normal color SpO2 Interpretation: normal SpO2: 98 O2 Delivery: Room Air Procedures - Laceration/Wound Repair Left Hand Time of Procedure: 15:35 Wound Location: Left, hand Wound Length (cm): 1.25 Wound's Depth, Shape: superficial, irregular Wound Explored: clean Irrigated: Yes Hibiclens Prep: Yes Anesthesia: 1% Lidocaine Volume Anesthetic (ccs): 2 Wound Repaired With: sutures Suture Size/Type: 4-0 Number of Sutures: 3 Layer Closure?: No Sterile Dressing Applied?: Yes Splint Applied?: No Ordered Tests: Medication Summary Discontinued Medications Generic Name Dose Route Start Last Admin Trade Name Jaydenq PRN Reason Stop Dose Admin Lidocaine HCl 5 ml 07/18/23 15:14 07/18/23 15:15 Lidocaine Hcl 1% 20 Ml Mdv 20 Ml Ml IJ 07/18/23 15:15 5 ml STAT ONE Administration - Progress Progress: improved Progress Note: 07/18/23 15:58 37-year-old is evaluated for left hand laceration. Has no bony tenderness. Intact range of motion of metacarpophalangeal joint and interphalangeal joints. After informed consent laceration is repaired. Fan taping done. It was a clean wound, do not think needs antibiotics. Recommended Tylenol ibuprofen and avoiding exertional activity with left hand. Discussed signs symptoms of worsening needing return to ER which she seems understanding. Counseled pt/family regarding: diagnosis, need for follow-up Medical Desision Making - Diagnostic Testing Diagnostic test were ordered, analyzed, and reviewed by me: No - Risk of complications The pt has a mod risk of morbidity or mortality based on: Need for minor surgical intervention in patient with know risk factors - Departure Departure Disposition: Home Clinical Impression: Hand laceration Condition: Stable Critical Care Time: No Referrals: JEREL ROBLERO NP [Primary Care Provider] - Follow up with PCP 1 day Instructions: Laceration Repair With Stitches (DC) Additional Instructions: Take Tylenol/ibuprofen as needed. Avoid exertional activities. Follow-up with primary care for reevaluation. Suture removal in 10 days. Return to ER for increasing pain swelling, difficulty movements of the finger, discharge, fever chills etc.
== END 2023-07-18 16:12 | disposition home or self-care (01) ==
LOC: ED 14:52
DX: S61.412A Laceration without foreign body of left hand, initial encounter (principal); W22.8XXA Striking against or struck by other objects, initial encounter; W27.0XXA Contact with workbench tool, initial encounter; Y92.007 Garden or yard of unspecified non-institutional (private) residence as the place of occurrence of the external cause
CPT/HCPCS: 12001; 99283